=== PATIENT | male | born 1960 | race Caucasian/White ===

== ENCOUNTER 2016-08-09 09:18 | Emergency (ER) | payer BC ==
[2016-08-09 10:43] VITALS: BP 157/55
--- NOTE | 2016-08-09 11:02 | ERNOTE ---
Medical Problem HPI - Narrative Date of Service: 08/09/16 - General Chief Complaint: General Assessment Time Seen by Provider: 08/09/16 10:48 Source: patient Exam Limitations: no limitations - Immun/Allergies/Home Medications Immunizations: IMMUNIZATION HX Immunizations Up to Date Yes History of Influenza Vaccine No Hx Pneumococcal Vaccination No Allergies/Adverse Reactions: Allergies No Known Allergies Allergy (Verified 08/09/16 10:43) Home Medications: HOME MEDICATIONS Lisinopril [Zestril] 20 mg PO DAILY 01/10/16 [Last Taken Unknown] - History of Present History Narrative: Pt. comes in with c/o diarrhea and fever for four days. Pt. states that he has been taking tylenol and immodium for the symptoms without relief and actually states that symptoms have worsened. Pt. denies any vomiting, rhinorrhea, SOB, CP, but does state that he has nausea. Pt. denies any alleviating or aggravating factors at this time. Review of Systems - Review of Systems Constitutional: Present: fever. Absent: recent illness, chills, weakness, fatigue, malaise EYE: Present: no symptoms reported ENT: Present: no symptoms reported Respiratory: Present: no symptoms reported. Absent: shortness of breath, cough , wheezing Cardiology: Present: no symptoms reported. Absent: chest pain, palpitations, edema Gastrointestinal/Abdominal: Present: nausea, diarrhea, eating less. Absent: vomiting, abdominal pain, drinking less Genitourinary: Present: no symptoms reported Musculoskeletal: Present: no symptoms reported. Absent: back pain, neck pain, joint pain Skin: Present: no symptoms reported. Absent: rash, change in hair/nails Neurological: Present: no symptoms reported. Absent: headache, dizziness/light- headedness, numbness, tingling All Other Systems: All systems neg except as marked - Patient's Past Medical History Patient History - Medical: No pertinent hx Patient History - Cancer: No Hx of Cancer Patient History - Surgical Procedures: No surgical history - Family History Father Family History - Medical: , No pertinent hx Family History - Cardiac/Respiratory: No pertinent hx Mother Family History - Medical: No pertinent hx Family History - Cardiac/Respiratory: No pertinent hx Brother Family History - Medical: No pertinent hx Family History - Cardiac/Respiratory: No pertinent hx - Social History Living Situations: home Smoking Status: Never smoker Alcohol Use: rarely Drug Use: none Physical Exam - Physical Exam General Appearance: Present: wd/wn, alert, no apparent distress Eye Exam: Normal inspection: bilateral, PERRL: bilateral, EOMI: bilateral Ears, Nose, Throat: Present: normal ENT inspection, hearing grossly normal, normal pharynx Neck: Present: normal inspection, nontender. Absent: lymphadenopathy (R), lymphadenopathy (L) Respiratory: Present: no respiratory distress, normal breath sounds, no accessory muscle use, chest nontender, lungs clear Cardiovascular/Chest: Present: regular rate, rhythm, no murmur, normal peripheral pulses Gastrointestinal/Abdominal: Present: normal bowel sounds, nontender, nondistended, soft, no organomegaly Back Exam: Present: normal inspection, normal range of motion, no CVA tenderness , no vertebral tenderness Extremity Exam: Present: normal inspection, non-tender, no edema, normal range of motion Neurological Exam: Present: alert, oriented, normal mood/affect, no motor/ sensory deficits Skin Exam: Present: normal color, warm/dry. Absent: pallor, skin rash ED Progress - Date and Time Seen: Date and Time: 08/09/16 11:48 Pt. with mild dehydration and mild hypokalemia will encourage pt. to keep drinking gatorade to replace electrolytes but do not feel that pt. is severe enough to need parenteral rehydration as he is able to hold down oral fluids. - Results and Orders Patient's Lab Results:: I have reviewed the patient's lab results. - Vital Signs Patient's Vital Signs:: I have reviewed the patient's vital signs. Vital Signs: Vital Signs 08/09/16 10:39 Temperature 36.2 C L Pulse Rate 77 Respiratory 16 Rate Blood Pressure 157/55 O2 Sat by Pulse 97 Oximetry - Progress/Reassessment Chief Complaint: General Assessment Departure - Departure Clinical Impression: Viral gastroenteritis Disposition: Home self-care Condition: Good Instructions: Viral Gastroenteritis, Adult, [id number], Rehydration, Adult Additional Instructions: Please follow up with primary provider in 2-3 days if not improved. Keep drinking gatorade and water, rest as much as possiblea and eat bland diet. Referrals: Angela Garcia, CHANTELL [Primary Care Provider] -
[2016-08-09 11:11] LABS: Hemoglobin 15.9 gm/dL (13.5-18.0); Mean Cell Volume 90.5 fl (78-100); Mean Corpuscular Hemoglobin 32.7 pg (27-31); Mean Corpuscular Hgb Conc 36.1 g/dl (32-36); Mean Platelet Volume 8.7 fl (6.0-9.5); Neutrophil # 5.1 K/mm3 (1.3-6.0); Neutrophil % 67.8 % (42-75.0); Platelet Count 312 K/mm3 (150-450); Red Blood Count 4.86 M/mm3 (4.7-6.0); Red Cell Distribution Width 11.5 % (11.5-14.0); White Blood Count 7.5 K/mm3 (4.0-10.5)
[2016-08-09 11:29] LABS: Anion Gap 15.2 mmol/L (6.8-13.8); BUN/Creatinine Ratio 15.4 (9.0-21.6); Bilirubin, Total 0.8 mg/dL (0.0-1.1); Ca. Corrected For Albumin 8.2 mg/dL (8.4-10.2); Calcium * 8.5 mg/dL (7.9-10.9); Carbon Dioxide 26.1 mmol/L (24-32.6); Potassium 3.3 mmol/L (3.4-4.6); Total Protein 7.6 gm/dL (6.2-8.2)
== END 2016-08-09 12:10 | disposition home or self-care (01) ==
LOC: ER 09:18
DX: A08.4 Viral intestinal infection, unspecified (principal)